=== PATIENT | male | born 1965 | race Caucasian/White ===

== ENCOUNTER 2019-10-15 11:05 | Outpatient (CLI) | payer OTHER | END 2019-10-15 11:06 | disposition home or self-care (01) | LOC: RAD 11:05 | DX: S60.222A Contusion of left hand, initial encounter (principal) ==

== ENCOUNTER 2019-10-20 09:27 | Outpatient (CLI) | payer OTHER | END 2019-10-20 09:30 | disposition home or self-care (01) | LOC: RAD 09:27 | DX: S62.617A Displaced fracture of proximal phalanx of left little finger, initial encounter for closed fracture (principal) ==

== ENCOUNTER 2019-11-24 12:19 | Outpatient (CLI) | payer OTHER | END 2019-11-24 12:20 | disposition home or self-care (01) | LOC: RAD 12:19 | DX: S62.617D Displaced fracture of proximal phalanx of left little finger, subsequent encounter for fracture with routine healing (principal) ==